=== PATIENT | female | born 1940 | race Caucasian/White ===

== ENCOUNTER 2021-04-19 09:37 | Emergency (ER) | payer OTHER ==
[~2021-04-19] VITALS: Ht 165.1 cm; Wt 84.1 kg
[~2021-04-19 09:37] MED LIST: CYCL10TA17 PO; GLIM4 PO; HYDR-4061 PO; LEVO50TA11 PO; LOSA50TA37 PO; METF-446 PO; NAPR-1025 PO; OMEP40CA21 PO
[2021-04-19 09:42] VITALS: BP 131/81
[2021-04-19] MEDS ORDERED: DiphenhydrAMINE HCL 50 MG/ML VIAL IM ONE (10:30)
== END 2021-04-19 11:19 | disposition home or self-care (01) ==
LOC: EMS 10:49
DX: R21 Rash and other nonspecific skin eruption (principal); E11.9 Type 2 diabetes mellitus without complications
CPT/HCPCS: 96372; 99283; J1200